=== PATIENT | male | born 1995 | race Caucasian/White ===

== ENCOUNTER 2016-08-26 12:39 | Emergency (ER) | payer SELFPAY ==
[~2016-08-26] VITALS: Ht 185.4 cm; Wt 86.9 kg
[2016-08-26] MEDS ORDERED: PREDNISONE10 MG PO (13:55)
[2016-08-26 14:16] VITALS: BP 136/84
== END 2016-08-26 14:17 | disposition home or self-care (01) ==
LOC: EME 12:39
DX: L25.9 Unspecified contact dermatitis, unspecified cause (principal)
CPT/HCPCS: 99281; 99284